=== PATIENT | male | born 2000 | race African-American/Black ===

== ENCOUNTER 2024-07-18 14:11 | Emergency (ER) | payer MEDICAID ==
[~2024-07-18] VITALS: Ht 195.6 cm; Wt 97.0 kg
[2024-07-18 14:17] VITALS: O2SAT 100
[2024-07-18 14:24] VITALS: BP 116/55; PULSE 78; RESP 16; TEMP 98.4; O2SAT 99
[2024-07-18] MEDS ORDERED: CETI10TA6 MT (17:35)
[2024-07-18] MEDS ORDERED: MUPI15CR11 TP (17:35)
[2024-07-18] MEDS ORDERED: CEPH500C2 MT (17:35)
== END 2024-07-18 17:43 | disposition home or self-care (01) ==
LOC: ER 14:11
DX: B08.1 Molluscum contagiosum (principal); L73.9 Follicular disorder, unspecified
CPT/HCPCS: 99283